=== PATIENT | male | born 1995 | race Hispanic/Latino ===

== ENCOUNTER 2022-02-15 14:28 | Emergency (ER) | payer OTHER ==
[~2022-02-15] VITALS: Ht 170.2 cm; Wt 83.9 kg
[2022-02-15] MEDS ORDERED: CEFTRIAXONE 1G VIAL IM ONE (15:00)
[2022-02-15] MEDS ORDERED: KETOROLAC 30MG VIAL (30MG/ML) IM ONE (15:00)
[2022-02-15] MEDS ORDERED: IBUP-2070 PO (15:42)
[2022-02-15] MEDS ORDERED: AMOX1TAB16 PO (15:42)
[2022-02-15 15:55] VITALS: BP 140/85
== END 2022-02-15 15:54 | disposition home or self-care (01) ==
LOC: EDH 14:28
DX: J02.0 Streptococcal pharyngitis (principal); Z79.1 Long term (current) use of non-steroidal anti-inflammatories (NSAID)
CPT/HCPCS: 87804 ×2; 87880; 96372 ×2; 99284; J0696; J1885

== ENCOUNTER 2024-01-02 12:25 | Emergency (ER) | payer OTHER ==
[~2024-01-02] VITALS: Ht 172.7 cm; Wt 77.1 kg
[~2024-01-02 12:25] MED LIST: AMOX1TAB16 PO; IBUP-2070 PO
[2024-01-02 13:04] VITALS: BP 124/87; PULSE 64; RESP 16
[2024-01-02] MEDS ORDERED: IBUP-2070 PO (13:15)
[2024-01-02] MEDS ORDERED: CYCL5TAB PO (13:15)
[2024-01-02] MEDS: KETOROLAC 30MG VIAL (30MG/ML) IM ONE (13:23)
[2024-01-02] MEDS: DIAZEPAM 5 MG TABLET PO ONE (13:24)
== END 2024-01-02 13:36 | disposition home or self-care (01) ==
LOC: EDH 12:25
DX: S46.912A Strain of unspecified muscle, fascia and tendon at shoulder and upper arm level, left arm, initial encounter (principal); S39.012A Strain of muscle, fascia and tendon of lower back, initial encounter; X58.XXXA Exposure to other specified factors, initial encounter; Y93.89 Activity, other specified; Y92.89 Other specified places as the place of occurrence of the external cause; Y99.8 Other external cause status
CPT/HCPCS: 99283; 96372; J1885